=== PATIENT | male | born 1995 | race African-American/Black ===

== ENCOUNTER 2017-07-08 17:35 | Emergency (ER) | payer SELFPAY ==
[~2017-07-08] VITALS: Ht 167.6 cm; Wt 81.6 kg
[2017-07-08 17:38] VITALS: BP 130/83
[2017-07-08 18:41] LABS: MONOTEST NEGATIVE (NEGATIVE)
== END 2017-07-08 19:10 | disposition home or self-care (01) ==
LOC: ER 17:36
DX: J02.9 Acute pharyngitis, unspecified (principal); B34.9 Viral infection, unspecified; F17.200 Nicotine dependence, unspecified, uncomplicated
CPT/HCPCS: 36415; 86308-TC; 86403-TC; 87070-TC; A4606; Z7610